=== PATIENT | male | born 1995 | race Native Hawaiian/Other Pacific Islander ===

== ENCOUNTER 2017-12-08 22:14 | Emergency (ER) | payer OTHER ==
[2017-12-08] MEDS ORDERED: LORazepam 2 MG/ML VIAL (J2060) As Ordered (22:23)
[2017-12-08] MEDS ORDERED: diphenhydrAMINE INJ 50MG/ML VIAL (J1200) As Ordered (22:23)
[2017-12-08] MEDS ORDERED: HALOPERIDOL 5 MG/ML VIAL (J1630) As Ordered (22:23)
[2017-12-08] MEDS: diphenhydrAMINE INJ 50MG/ML VIAL (J1200) IM (22:27)
[2017-12-08] MEDS: HALOPERIDOL 5 MG/ML VIAL (J1630) IM (22:27)
[2017-12-08] MEDS: LORazepam 2 MG/ML VIAL (J2060) IM (22:28)
[2017-12-08 23:16] LABS: HEMOGLOBIN 16.5 g/dl (13.5-17.5); MEAN CORPUSCULAR HEMOGLOBIN 28.2 pg (27.0-33.0); MEAN CORPUSCULAR HGB CONC 34.4 g/dl (32.0-36.5); MEAN CORPUSCULAR VOLUME 82.1 fl (80.0-96.0); PLATELET COUNT, AUTOMATED 258 10^3/uL (150-450); RED BLOOD COUNT 5.85 10^6/uL (4.30-6.10); RED CELL DISTRIBUTION WIDTH 11.9 % (11.5-14.5); WHITE BLOOD COUNT 5.8 10^3/uL (4.0-10.0)
[2017-12-08 23:28] LABS: AMPHETAMINES LEVEL URINE NEGATIVE (NEGATIVE); BARBITURATES URINE NEGATIVE (NEGATIVE); BENZODIAZEPINES URINE NEGATIVE (NEGATIVE); CANNABINOIDS URINE NEGATIVE (NEGATIVE); COCAINE METABOLITE URINE NEGATIVE (NEGATIVE); METHADONE URINE NEGATIVE (NEGATIVE); OPIATES URINE NEGATIVE (NEGATIVE); PHENCYCLIDINE URINE NEGATIVE (NEGATIVE)
[2017-12-08] MEDS: LORazepam 2 MG/ML VIAL (J2060) IV (23:36)
[2017-12-08 23:40] LABS: ALBUMIN 4.4 GM/DL (3.2-5.2); ALBUMIN/GLOBULIN RATIO 1.42 (1.00-1.93); ALKALINE PHOSPHATASE 95 U/L (45-117); ALT/SGPT 53 U/L (12-78); ANION GAP 12 MEQ/L (8-16); AST/SGOT 54 U/L (7-37); BILIRUBIN,DIRECT 0.2 MG/DL (0.0-0.2); BILIRUBIN,TOTAL 0.9 MG/DL (0.2-1.0); BLOOD UREA NITROGEN 15 MG/DL (7-18); CALCIUM LEVEL 8.4 MG/DL (8.5-10.1); CARBON DIOXIDE LEVEL 22 MEQ/L (21-32); CHLORIDE LEVEL 111 MEQ/L (98-107); CREATININE FOR GFR 1.04 MG/DL (0.70-1.30); ETHYL ALCOHOL (ETHANOL) 0.248 % (0.000-0.010); GLOMERULAR FILTRATION RATE > 60.0 (>60); GLUCOSE, FASTING 97 MG/DL (70-100); POTASSIUM SERUM 3.5 MEQ/L (3.5-5.1); SALICYLATE LEVEL < 1.7 MG/DL (5.0-30.0); SODIUM LEVEL 145 MEQ/L (136-145); TOTAL PROTEIN 7.5 GM/DL (6.4-8.2)
[2017-12-08] MEDS ORDERED: LIDOCAINE W/EPINEPHRINE 1% 20ML VIAL As Ordered (23:50)
[2017-12-08] MEDS: LIDOCAINE W/EPINEPHRINE 1% 20ML VIAL SC (23:51)
[2017-12-08 23:55] LABS: ACETAMINOPHEN LEVEL < 2.0 UG/ML (10.0-30.0)
[2017-12-09] MEDS: LORazepam 2 MG/ML VIAL (J2060) IV (01:35)
== END 2017-12-09 08:02 | disposition home or self-care (01) ==
LOC: M ED 22:14
DX: F10.929 Alcohol use, unspecified with intoxication, unspecified (principal); S81.812A Laceration without foreign body, left lower leg, initial encounter; X58.XXXA Exposure to other specified factors, initial encounter; Y92.89 Other specified places as the place of occurrence of the external cause; F17.200 Nicotine dependence, unspecified, uncomplicated; Z88.0 Allergy status to penicillin
CPT/HCPCS: J1200